=== PATIENT | male | born 1955 | race Two or more races ===

== ENCOUNTER 2023-07-26 15:40 | Inpatient (IN) | payer OTHER, MEDICARE, SELFPAY ==
[2023-07-26] VITALS (17 sets, daily range): BP systolic 122–182; BP diastolic 65–85; BMI 32.0
--- NOTE | 2023-07-26 11:13 | W.PN.CARDCBS ---
Today's Communication / Plan
-
LHC
echo in AM
cardiac rehab consult
Impression / Plan
-
This is the H&P summary.
Full H&P scanned into chart.
PCP: Thomas Quiroz MD
CDY: Dr. Christopher Jackson, DO
68 y/o, PMH sig for HTN, HLD, DM, Hepatitis C, FH CAD- brother with CAD/PCI.
Presented to [facility] ER yesterday with new onset exertional chest pain/discomfort, with associated nausea. He took 3 SL NTG tablets that belonged to his brother, and did get relief. He was given aspirin in the ER. Intial EKG NSR w/RBBB, LAFB. HS
Troponin trended with peak 123. Transferred today for C.
IMPRESSION:
NSTEMI
New RBBB, LAFB
HTN
HLD
DM
Hepatitis C
PLAN:
NSTEMI- LHC today
plan pending cath results
aspirin loaded in ER and 81mg given this morning
new start metoprolol XL 25mg
echo in AM
cardiac rehab
followup with Dr. Jackson at d/c
HTN- BP up to 180s on arrival
new start metoprolol xl 25/d
continue lisinopril 20mg/d
monitor trends
HLD- check lipid profile
increase atorvastatin to 80mg/daily
DM- check HgbA1C
continue glipizide, ISS coverage
Hepatitis C- diagnosed about 7 years ago
stable, and monitored per PCP
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
Subjective
Date of Service: July 26, 2023
Physical Exam
Physical Exam
AAOx3, MAEE 5/5
RRR S1 S2 no murmurs
CTA bilat, non labored
soft abd, + bs
bilat extremities w/palpable distal pulses, no edema
[2023-07-26 12:40] LABS: Glucose - Point of Care 144 mg/dl (70-99)
[2023-07-26] MEDS: NSS 262 ML IV (13:04)
[2023-07-26] MEDS: NSS 1000 IV (15:19)
--- NOTE | 2023-07-26 15:36 | PTCARENOTE ---
Rec'd Pt from prestressed concrete laborer, awake alert, speaks Vietnamese, son at bedside and translating for Pt. Pt denies pain. R radial R band in place, R femoral dsg D+I>
[2023-07-26 15:40] LABS: Glucose - Point of Care 142 mg/dl (70-99)
[2023-07-26] MEDS: NOVOLOG FLEXPEN-MODERATE RESISTANCE SC (15:57)
--- NOTE | 2023-07-26 15:57 | ITS.CL.CATH ---
Account Executive Trainee - Catheterization
Cardiac Catheterization
Procedure Report:
CARDIAC CATHETERIZATION REPORT
Date of Procedure: 07/26/2023
Referring: Christopher Jackson D.O.
INDICATION: Transfer from [facility] for non-ST elevation myocardial infarction.
PROCEDURE:
1. Left heart catheterization.
2. Coronary angiography.
ACCESS:
6 Portuguese right radial artery.
6 Portuguese right common femoral artery using modified Seldinger technique with a micropuncture kit under ultrasound guidance.
CATHETERS:
1. 5 Portuguese JR4.
2. 5 Portuguese JL 3.5.
HEMODYNAMIC DATA
Weight (kg): 87.1
AO (s/d/x, mmHg): 120/66/87
LV (s/x mmHg): 125/22
LEFT VENTRICULOGRAPHY: Not performed.
CORONARY ANGIOGRAPHY
Dominance: Left.
Left Main: Large size, trifurcating vessel. There is no coronary artery disease.
LAD: Normal size vessel giving rise to 2 significant diagonals. There is an 80% proximal/mid vessel lesion originating near the origin of the first diagonal, followed by a 70% lesion in the mid vessel, proximal to the second diagonal.
Ramus: Small to medium size vessel. There is no coronary artery disease.
Circumflex: Large size, dominant vessel giving rise to 2 obtuse marginals followed by left posterolateral branch then terminating as an L PDA. There is a 90% lesion in the origin of the large second marginal. There is a 90% lesion in the distal
aspect of the small LPDA.
RCA: Small size, nondominant vessel.
INTERVENTION(S)
None.
Closure Device: Vascular band for the right radial artery, 6 went Angio-Seal for the right common femoral artery.
Radiation (mGy): 516.98
DAP (cm2.Gy): 48.1910
Fluoroscopy time (minutes): 5.6
Sedation time (minutes): 58
CONCLUSIONS
1. Non-ST elevation myocardial infarction in a left dominant system with an 80% proximal/mid LAD lesion originating near the origin of the first diagonal followed by a 70% lesion in the mid LAD proximal to the second diagonal, and 90% lesion in the
origin of the large second obtuse marginal and a 90% lesion in the distal aspect of the small LPDA.
2. Moderately elevated filling pressures (LVEDP = 22 mmHg at 87.1 kg).
3. 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
RECOMMENDATIONS:
1. Expectant management after cardiac catheterization via right radial and right femoral approach.
2. Limited weight bearing on the right wrist for one week.
3. Consultation with CT surgery regarding optimal revascularization strategy.
4. Secondary prevention with high-dose, high potency statin.
5. Risk factor control.
6. Echocardiogram ordered and pending.
Copy to: Christopher Jackson D.O.
Christopher Mark DO, FACC, FACP
--- NOTE | 2023-07-26 16:16 | CONSULT.CT ---
Consultation
-
Date/Time Consultation Requested: 07/26/2023
Date/Time Consultation Performed: 07/26/2023
Requesting Provider: Dr. Christopher Mark
Performing Provider: Nalini pinzon
Reason for Consultation: Evaluation for surgical revascularization
Patient History
Physicians
Family Physician: Thomas Quiroz
Outpatient Hardware Sales Assistant: Dr. Christopher Jackson
Inpatient Hardware Sales Assistant: Dr. Ronald Mark
History of Present Illness
This is a 68-year-old gentleman with past medical history of hypertension, hyperlipidemia, type 2 diabetes and BPH presented to [facility] with chest pain. He is Persian speaking and plate maker zinc services were used. He describes chest pain
as 'pressure' he was lifting boxes and went up and down the stairs when he developed substernal chest pressure. He denied any shortness of breath. He took 3 sublingual nitro tablets which improved his symptoms. He is not prescribed sublingual
nitro but his brother takes them who had had a PCI in the past. He admits to seeing a sap bw bi developer approximately 1 year ago.
He ruled in for NSTEMI with serial enzymes studies.
He was transferred to [facility] and underwent cardiac catheterization today. Cardiac cath showed critical disease of LAD and OM.
All studies to be reviewed by attending cardiothoracic surgeon and patient to be scheduled for CABG later this week.
Past Medical History
Past Medical History: Angina, BPH, CAD, GERD, HTN, Hypercholesterolemia, NIDDM, [place] and Other
History of hepatitis C not treated, hypertension, kidney stones, hyperlipidemia,
Past Surgical History
Past Surgical History: Cholecystectomy
Cholecystectomy, cataract surgery, lipoma
Dental History
No dental issues presently has dentures
Family History
Mother: at Age
Father: at Age
Family Medical History: CAD and Hypertension
Social History
Alcohol: None
Drug: None
Tobacco: Former Smoker (Former smoker quit 20 years ago)
Personal:
Living: With Spouse
Employment: Retired
Allergies
Allergy/AdvReac Type Severity Reaction Status Date / Time
No Known Allergies Allergy Verified 07/26/23 11:53
Home Medications
Medication Instructions Recorded Confirmed Type
atorvastatin 10 mg tablet 10 mg PO DAILY 07/26/23 07/26/23 History
cyclobenzaprine 5 mg tablet 5 mg PO BID PRN spasam 07/26/23 07/26/23 History
glipizide 10 mg tablet, extended 10 mg PO DAILY 07/26/23 07/26/23 History
release 24 hr (Glucotrol XL)
ibuprofen 200 mg tablet (Advil) 600 mg PO Q6H PRN pain 07/26/23 07/26/23 History
latanoprost 0.005 % eye drops 1 drp ophthalmic (eye) DAILY 07/26/23 07/26/23 History
(Xalatan)
lisinopril 20 mg tablet (Zestril) 20 mg PO DAILY 07/26/23 07/26/23 History
meclizine 25 mg tablet 25 mg PO TID PRN dizziness 07/26/23 07/26/23 History
naproxen 500 mg tablet (Naprosyn) 500 mg PO BID PRN pain 07/26/23 07/26/23 History
tamsulosin 0.4 mg capsule (Flomax) 0.4 mg PO HS 07/26/23 07/26/23 History
Review of Systems
-
Unable to obtain full review of systems at this time due to: Language Barrier
History Source: Family
General: Reports No Symptoms
HEENT: Reports No Symptoms
Respiratory: Reports No Symptoms
Cardiac: Reports Chest Pain, CAD and Nausea
Abdomen/GI: Reports No Symptoms
: Reports Nocturia and Other (BPH)
Musculoskeletal: Reports No Symptoms
Skin: Reports No Symptoms
Neurological: Reports No Symptoms
Vascular: Reports No Symptoms
Physical Exam
Vital Signs
Temp 98.6 F 07/26/23 11:30
Pulse 53 07/26/23 15:45
Resp Rate 16 07/26/23 13:46
Blood pressure 144/69 07/26/23 15:45
Blood pressure extremity used: Right upper arm 07/26/23 11:30
Position: Lying 07/26/23 11:30
MAP (cuff-Chante Monitor) 89 07/26/23 15:45
SaO2 95 07/26/23 13:46
Oxygen Mode of Delivery Room air 07/26/23 11:30
Can the patient verbally communicate their pain? Yes 07/26/23 11:30
Actual Weight 192 lb 7.417 oz 07/26/23 11:14
Body Mass Index (BMI) 32.0 07/26/23 11:14
Exam
General: Well Developed, Well Nourished and No Apparent Distress
HEENT: Normocephalic, Anicteric and Atraumatic
Neck: Trachea Midline
Respiratory: Clear
Cardiac: Regular Rhythm
GI: Soft, Non Tender, Non Distended, Normal Bowel Sounds and Other (Obese)
Rectal: Deferred by Provider
Skin: Warm and Dry
Neuro: Awake, Alert, Oriented and AO x 3
Extremities: Pulses (Popliteal pulses +2 bilaterally dorsalis pedis pulses +2 bilaterally, posterior tibial pulses +1 bilaterally feet cool dry no visible ulcerations)
Lymph: No Lymphadenopathy
Psych: Calm
Assessment / Plan
-
Assessment: NSTEMI
Two-vessel coronary artery disease status post cath via right radial artery
History of hepatitis C
Hypertension
Hyperlipidemia
Type 2 diabetes
New right bundle branch block,LAFB
Kidney stones
BPH
Elevation of left hemidiaphragm
Family history of CAD
Plan: All studies to be reviewed by attending cardiothoracic surgeon
Preoperative studies ordered
CABG later this week
--- NOTE | 2023-07-26 16:38 | CM ---
"Chart reviewed. Patient is non Turkish speaking, spoke with his son Romaine. Patient is independent of ADLS, lives with his in a apartment [address]nd floor, [address] 0 [address]ME. Patient is current with a VN, but unsure of who and how often. Patient's son "Pepe"will find out who the VN company is and how often. Plan is for the patient to return home. CM to follow"
[2023-07-26 17:59] LABS: Total CK 138 U/L (55-170)
[2023-07-26 18:20] LABS: CKMB 3.2 ng/ml (0.0-2.4)
[2023-07-26] MEDS: LIPITOR 80 MG PO (18:29)
[2023-07-26 21:40] LABS: Hematocrit 42.1 % (39.0-52.0); Hemoglobin 14.7 g/dL (13.0-18.0); Mean Corp Hgb Conc. 34.9 g/dL (33.0-37.0); Mean Corpuscular Hgb 30.1 pg (27.0-31.0); Mean Corpuscular Volume 86.1 fL (80.0-94.0); Mean Platelet Volume 10.5 fL (7.4-10.4); Platelet Count 131 10^3/uL (130-400); Red Blood Cell Count 4.89 10^6/uL (4.70-6.10); Red Cell Dist. Width 13.2 % (11.5-14.5); White Blood Cell Count 5.3 10^3/uL (4.8-10.8)
[2023-07-26 21:51] LABS: APTT 27.5 Sec (23.4-35.0)
[2023-07-26 21:56] LABS: Total CK 133 U/L (55-170)
[2023-07-26] MEDS: FLOMAX 0.400000000000000022 MG PO (22:06)
[2023-07-26] MEDS: HEPARIN 25000 UNITS/250 ML IV (22:06)
[2023-07-26 22:07] LABS: Glucose - Point of Care 190 mg/dl (70-99)
[2023-07-26 22:14] LABS: CKMB 2.3 ng/ml (0.0-2.4)
--- NOTE | 2023-07-26 22:35 | PTCARENOTE ---
Received pt at handoff. AOx3. Assessment noted as documented. Tele- SB w/ BBBC. HR 50-60s. R radial and R femoral c/d/i. Pt OOB ambulating around room; steady gait. Family at bedside translating. Currently in bed; call deena w/in reach.
[2023-07-27 04:54] VITALS: BP 135/75
[2023-07-27 05:33] LABS: Hematocrit 38.3 % (39.0-52.0); Hemoglobin 13.5 g/dL (13.0-18.0); Mean Corp Hgb Conc. 35.2 g/dL (33.0-37.0); Mean Corpuscular Volume 85.1 fL (80.0-94.0); Mean Platelet Volume 10.4 fL (7.4-10.4); Platelet Count 131 10^3/uL (130-400); Red Cell Dist. Width 13.1 % (11.5-14.5); White Blood Cell Count 5.5 10^3/uL (4.8-10.8)
[2023-07-27 05:45] LABS: APTT 42.7 Sec (23.4-35.0)
[2023-07-27 06:09] LABS: Total CK 102 U/L (55-170)
[2023-07-27 06:12] LABS: ALT (SGPT) 18 U/L (0-50); AST (SGOT) 27 U/L (17-59); Alkaline Phosphatase 51 U/L (38-126); Blood Urea Nitrogen 14 mg/dl (9-20); Carbon Dioxide 25 mmol/L (22-30); Chloride 102 mmol/L (98-107); Estimated Creatinine Clearance 78 ml/min; Glucose 212 mg/dl (70-99); HDL Cholesterol 33 mg/dl; LDL Cholesterol, Calculated 62 mg/dl; Sodium 136 mmol/L (135-145); Total Cholesterol 115 mg/dl (50-199); Total Protein 6.8 g/dl (6.3-8.2); Triglyceride 104 mg/dl (10-149); Very Low Density Lipoprotein 20 mg/dl (0-30); eGFR > 60.00
[2023-07-27 06:30] LABS: CKMB 1.2 ng/ml (0.0-2.4)
--- NOTE | 2023-07-27 07:20 | W.PN.CD ---
Today's Communication / Plan
-
Continue med Rx
Awaiting CABG
Impression / Plan
-
This is the H&P summary.
Full H&P scanned into chart.
PCP: Thomas Quiroz MD
CDY: Dr. Christopher Jackson, DO
68 y/o, PMH sig for HTN, HLD, DM, Hepatitis C, FH CAD- brother with CAD/PCI.
Presented to [facility] ER yesterday with new onset exertional chest pain/discomfort, with associated nausea. He took 3 SL NTG tablets that belonged to his brother, and did get relief. He was given aspirin in the ER. Intial EKG NSR w/RBBB, LAFB. HS
Troponin trended with peak 123. No CP yesterday.
IMPRESSION:
NSTEMI
New RBBB, LAFB
HTN
HLD
DM
Hepatitis C
PLAN:
NSTEMI-
Trop not yet peaked. 1.9 this AM
multivessel CAD at cath 3-18. CABG recommened by Dr Mark. Looks to me like only graftable targets are LAD and large OM3 (OM1, OM2 small). Diseased diag and LPDA too small
metoprolol XL 25mg
echo in AM
followup with Dr. Jacksno at d/c
HTN- BP up to 180s on arrival
new start metoprolol xl 25/d
continue lisinopril 20mg/d
BP high last night 135/75 this AM. Follow
HLD- check lipid profile
increase atorvastatin to 80mg/daily
HDL 32, LDL 63
DM-
HgbA1C this AM pending
continue glipizide, ISS coverage
Hepatitis C- diagnosed about 7 years ago
stable, and monitored per PCP
Dispo: Stable awaiting CABG
Physical Exam
Vital Signs/Labs
Vital Signs
Temp Pulse Resp BP Pulse Ox
98.7 F 81 16 135/75 94
07/27/23 04:54 07/27/23 05:30 07/26/23 23:11 07/27/23 04:54 07/27/23 04:54
07/26/23 07/27/23 07/28/23
06:59 06:59 06:59
Actual Weight 192 lb 7.417 oz
07/27/23 05:10
07/27/23 05:10
APTT 42.7 Sec (23.4-35.0) H 07/27/23 05:10
Triglycerides 104 mg/dl (10-149) 07/27/23 05:10
LDL Cholesterol, Calc 62 mg/dl 07/27/23 05:10
VLDL Cholesterol, Calc 20 mg/dl (0-30) 07/27/23 05:10
HDL Cholesterol 33 mg/dl 07/27/23 05:10
LAB Results
07/26/23 07/26/23 07/27/23
17:14 21:19 05:10
Troponin I 1.740 H* 1.660 H* 1.980 H*
Physical Exam
Constitutional: No acute distress and Comfortable
Cardiovascular: Rhythm & rate is regular, S1S2 is normal and Murmur/rub/gallop absent
Respiratory: Respiratory effort normal and Lungs clear to auscul.
GI: Non tender
Neuro/Psych: AO x 3 and Motor deficits absent
Data Reviewed
-
Date of Service: July 27, 2023
[2023-07-27 07:36] VITALS: BP 123/71
[2023-07-27 07:40] LABS: Glucose - Point of Care 162 mg/dl (70-99)
[2023-07-27] MEDS: LOW STRENGTH ASPIRIN 81 MG PO (08:33)
[2023-07-27] MEDS: GLUCOTROL XL (EXTENDED RELEASE) 10 MG PO (08:33)
[2023-07-27] MEDS: TOPROL XL 25 MG PO (08:34)
[2023-07-27] MEDS: NOVOLOG FLEXPEN-MODERATE RESISTANCE 1 UNITS SC (08:34)
[2023-07-27] MEDS: XALATAN OPHTHALMIC SOLUTION 1 DROP OPHTH (08:35)
--- NOTE | 2023-07-27 09:39 | PTCARENOTE ---
Pt given education on acute coronary syndrome/heart attack in Yakut printed from [employer]. Pt's primary language is Yakut, he speaks very little Trinidadian. Language line is at bedside.
--- NOTE | 2023-07-27 10:46 | PN.DE.MGMTRT ---
Insulin Management
- -
07/27/2023 Diabetes Management Consult
Patient transferred from [facility] 07/25 with CP. S/P cardiac cath. Patient is Divehi speaking, he preferred to call his son for translation. PMH HTN, HLD, type 2 diabetes for 10 years, hepatitis C. Prior to admission patient was taking
glipizide XL 10 mg daily. A1C is 8%, cr .9, eGFR >60. Patient does have a working glucose monitor but states he ran out of strips ~ 20 days ago. Son will provide name of glucose monitor so additional strips can be prescribed for discharge.
He is to have stent placed. Will discuss with CM cost of Jardiance or Farxiga to add to manage diabetes.
Diabetes History
- -
Type of Diabetes: 2
Pre-Admission Diabetes Regimen
07/27/23
05:10
Creatinine 0.9
Lab Results
Hemoglobin A1c 8.0 % (4.0-5.6) H 07/27/23 05:10
Insulin Pump Settings
IP Diabetes Regimen
07/26/23 07/26/23 07/26/23
12:26 15:39 22:04
Glucose
POC Glucose 144 H 142 H 190 H
07/27/23 07/27/23
05:10 07:38
Glucose 212 H
POC Glucose 162 H
Meal type: Breakfast
Meal type: Dinner
Amount consumed: 100%
Amount consumed: 100%
Patient Education
[2023-07-27] MEDS: VENTOLIN NEBULES 2.5 MG INH (11:20)
--- NOTE | 2023-07-27 11:47 | CM ---
Pricing on Farxiga through the patient's [facility], ID [id number] is $0 copay.
Pricing on Jardiance is $0 copay.
--- NOTE | 2023-07-27 13:28 | CM ---
Chart reviewed. Patient's at bedside, she does not speak Malian and called her son to translate. Patient is independent of ADLS, lives in a 2nd floor apartment, [address]. Patient son working on getting the information on the VN agency
they use. Patient unsure if they want a PCI vs CABG. CM to follow
[2023-07-27 13:41] LABS: APTT 57.1 Sec (23.4-35.0)
[2023-07-27 13:41] LABS: Glucose - Point of Care 133 mg/dl (70-99)
[2023-07-27] MEDS: NOVOLOG FLEXPEN-MODERATE RESISTANCE SC ×2 (13:54→17:34)
[2023-07-27] MEDS: FARXIGA 10 MG PO (13:54)
[2023-07-27 15:39] VITALS: BP 111/56
--- NOTE | 2023-07-27 16:39 | W.PN.UPDATE ---
Update Note
Progress Note Update
CARDIAC SURGERY ATTENDING:
It was my pleasure to speak with Mr. Peralta and his family at bedside with the aid of an Korean gore maker. We reviewed his coronary pathology, the proposed operative interventions, associated periprocedural risks, the expected in-hospital
postoperative course, and expected outpatient recovery. I spent great deal time discussing that CABG represented a survival advantage over PCI/stenting given his coronary disease profile and medical comorbidities.
He was quite trepidations regarding potential surgical intervention. His brother had PCI/stenting 14 years prior and has been doing well, and he stated that he knew numerous people who had complications following open heart surgery. Despite
stating that he understood the recommendation, the patient was not amenable to surgery at this time. He appears to be leaning more towards PCI/stenting, but has not yet made a final decision, pending discussions this evening with his children. I
am happy to offer him CABG with SANTOS to LAD and greater saphenous vein to OM2.
If the patient chooses to proceed with PCI/stenting, speaking with my interventional cardiology colleagues, he will require a Brilinta 180 mg p.o. loading dose this evening.
Thank you for the opportunity to participate in the care of this patient.
Please call with any questions or concerns.
Alessandro Thompson MD
[phone]
[2023-07-27] MEDS: LIPITOR 80 MG PO (17:23)
[2023-07-27] MEDS: HEPARIN 25000 UNITS/250 ML IV (17:25)
[2023-07-27 17:31] LABS: Glucose - Point of Care 126 mg/dl (70-99)
--- NOTE | 2023-07-27 18:30 | W.PN.UPDATE ---
Update Note
Progress Note Update
Patient has decided to proceed with stent option. Drs. Walters and Jay notified. Confirmed Brilinta 180mg x 1 for 1999 ton and 90mg x 1 on 07/27 @ 0800.
[2023-07-27 19:13] VITALS: BP 142/95
[2023-07-27] MEDS: BRILINTA 180 MG PO (20:40)
[2023-07-27 20:45] LABS: APTT 72.2 Sec (23.4-35.0)
[2023-07-27 21:44] LABS: Glucose - Point of Care 119 mg/dl (70-99)
[2023-07-27 22:27] VITALS: BP 144/88
[2023-07-27] MEDS: FLOMAX 0.400000000000000022 MG PO (22:27)
--- NOTE | 2023-07-27 23:16 | PTCARENOTE ---
Received pt at handoff. AOX3. Assessment noted as documented. VSS. Heparin gtt infusing at 1500units/hr. R radial DIANA. R femoral c/d/i. Pt aware of NPO status for cath tomorrow. Currently in bed; call deena w/in reach.
[2023-07-28] VITALS (21 sets, daily range): BP systolic 125–156; BP diastolic 82–99; BMI 30.6
[2023-07-28 04:06] LABS: Mean Corp Hgb Conc. 35.9 g/dL (33.0-37.0); Mean Corpuscular Hgb 30.5 pg (27.0-31.0); Mean Platelet Volume 10.6 fL (7.4-10.4); Platelet Count 131 10^3/uL (130-400); Red Blood Cell Count 4.59 10^6/uL (4.70-6.10); Red Cell Dist. Width 13.1 % (11.5-14.5); White Blood Cell Count 4.4 10^3/uL (4.8-10.8)
[2023-07-28 04:15] LABS: APTT 43.9 Sec (23.4-35.0)
--- NOTE | 2023-07-28 07:16 | PN.DE.MGMTRT ---
Insulin Management
- -
07/28/2023 Diabetes Management Follow up
Patient transferred from [facility] 07/25 with CP. S/P cardiac cath. Patient is awake, alert and oriented, Tamazight speaking, he preferred to call his son for translation. PMH HTN, HLD, type 2 diabetes for 10 years, hepatitis C. Prior to
admission patient was taking glipizide XL 10 mg daily. A1C is 8%, cr .9, eGFR >60. Patient does have a working glucose monitor but states he ran out of strips ~ 20 days ago.
Discussed new medication, Farxiga, with patient. 10 mg Farxiga started yesterday, glucose improved from 144 to 190 to 119 to 133. Will continue Farxiga with glipizide. Patient to have stent rather than CABG.
Diabetes History
- -
Type of Diabetes: 2
Pre-Admission Diabetes Regimen
Lab Results
Hemoglobin A1c 8.0 % (4.0-5.6) H 07/27/23 05:10
Insulin Pump Settings
IP Diabetes Regimen
07/27/23 07/27/23 07/27/23
07:38 13:39 17:30
POC Glucose 162 H 133 H 126 H
07/27/23
21:42
POC Glucose 119 H
Meal type: Dinner
Meal type: Breakfast
Amount consumed: 100%
Amount consumed: 100%
Patient Education
[2023-07-28] MEDS: LOW STRENGTH ASPIRIN 81 MG PO (08:42)
[2023-07-28] MEDS: TOPROL XL 25 MG PO (08:42)
[2023-07-28] MEDS: NOVOLOG FLEXPEN-MODERATE RESISTANCE 1 UNITS SC (08:46)
[2023-07-28] MEDS: XALATAN OPHTHALMIC SOLUTION 1 DROP OPHTH (08:46)
[2023-07-28 08:47] LABS: Glucose - Point of Care 150 mg/dl (70-99)
[2023-07-28] MEDS: BRILINTA 90 MG PO ×2 (08:49→21:01)
--- NOTE | 2023-07-28 09:39 | PTCARENOTE ---
Assumed care of pt from night RN. Pt received awake and alert, Ox3. Speaks only Albanian, this nurse is using Google translate to communicate with pt without issues. VSS, CM shows NSR with BBB, POX 96% on RA. Right radial and femoral sites remain
CDI. Pt remains NPO for CCL, Brillinta 90 mg given as per JUL. Glipizide and Farxiga held till after procedure. Pt denies any pain or discomfort at this time.
--- NOTE | 2023-07-28 11:18 | PTCARENOTE ---
Report given to CCL nurse, pt taken to CCL for stenting.
--- NOTE | 2023-07-28 11:22 | W.PN.CD ---
Today's Communication / Plan
-
Patient declined CABG.
Plan for PCI today.
Loaded with ticagrelor overnight.
Impression / Plan
-
Impression/Plan: 68 y/o Thai speaking male with PMH sig for HTN, HLD, DM, Hepatitis C, FH CAD (brother with CAD/PCI) transferred from [facility] with NSTEMI. Cath showed LAD/OM disease. Patient declined CABG after two separate conversations
facilitated by the patient's son (who translates).
#NSTEMI
-Troponin peaked at 1.980.
-Multivessel CAD including LAD disease on cath. Patient initially referred for CABG. Patient declined CABG, prefers PCI in spite of at least two conversations documenting fdc benefit to CABG in DM.
-TTE shows normal LV function.
-Continue high dose, high potency statin.
-Loaded with ticagrelor. Plan for PCI today.
#HTN
-SBP up to 180s on arrival.
-Controlled on current regimen.
-Continue metoprolol.
-Restart lisinopril at reduced dose (10 mg) daily.
#HLD
-Chronic, stable.
-Total cholesterol = 115, LDL = 62, HDL = 33, Triglycerides = 104.
-Continue atorvastatin 40 mg daily.
-Goal LDL < 55.
#NIDDM
-HgbA1C = 8.0%.
-Continue glipizide. Dapagliflozin added.
#Hepatitis C
-Diagnosed about 7 years ago.
-Monitored per PCP.
Subjective/Interval History:
Patient has declined CABG after two (really three) separate conversations.
He is chest pain free.
Loaded with ticagrelor in anticipation of PCI.
PCP: Thomas Quiroz MD
CDY: Dr. Christopher Jackson,
DATA:
TTE, 07/27/2023:
CONCLUSIONS
�Normal biventricular size and systolic function without regional wall motion
�abnormality.
�The anterolateral wall was not well visualized.
�No significant valvular disease. .
�No prior study available for comparison.
Cardiac Catheterization, 07/26/2023:
CONCLUSIONS
1.� Non-ST elevation myocardial infarction in a left dominant system with an 80% proximal/mid LAD lesion originating near the origin of the first diagonal followed by a 70% lesion in the mid LAD proximal to the second diagonal, and 90% lesion in the
origin of the large second obtuse marginal and a 90% lesion in the distal aspect of the small LPDA.
2.� Moderately elevated filling pressures (LVEDP = 22 mmHg at 87.1 kg).
3.� Severe right subclavian tortuosity versus arteria lusoria.
Physical Exam
Vital Signs/Labs
Vital Signs
Temp Pulse Resp BP Pulse Ox
36.9 C 87 20 130/83 96
07/28/23 08:09 07/28/23 08:30 07/28/23 08:09 07/28/23 08:10 07/28/23 09:22
07/26/23 07/27/23 07/28/23
11:59 11:59 11:59
Actual Weight 87.3 kg 83.3 kg
07/28/23 03:32
07/27/23 05:10
APTT 43.9 Sec (23.4-35.0) H 07/28/23 03:32
Triglycerides 104 mg/dl (10-149) 07/27/23 05:10
LDL Cholesterol, Calc 62 mg/dl 07/27/23 05:10
VLDL Cholesterol, Calc 20 mg/dl (0-30) 07/27/23 05:10
HDL Cholesterol 33 mg/dl 07/27/23 05:10
LAB Results
07/26/23 07/26/23 07/27/23
17:14 21:19 05:10
Troponin I 1.740 H* 1.660 H* 1.980 H*
07/27/23
16:59
Troponin I 1.210 H*
Physical Exam
Constitutional: No acute distress and Comfortable
EENT: Anicteric and Moist mucous membranes
Cardiovascular: Rhythm & rate is regular, Pedal edema is absent, JVD pressure is normal, S1S2 is normal and Murmur/rub/gallop absent
Respiratory: Respiratory effort normal, Lungs clear to auscul., Wheeze Absent, Crackles Absent and Rhonchi Absent
GI: Soft, Distention absent, Flat, Non tender and Normal bowel sounds
Other: Cath Site (Right common femoral access site is mildly ecchymotic.)
Data Reviewed
-
Date of Service: July 28, 2023
Medical Decision Making: Reviewed Test Results, Independent Historian Assessment and Test Interpretation
EKG: Tracing Personally Visualized and interpreted and Report Reviewed by me
Echo: Report Reviewed by me
X-Ray/CT/US/MRI/NUC/PET: Image Personally Visualized and interpreted and Report Reviewed by me
Medical Tests (PFT, Pathology etc): Image Personally Visualized and interpreted, Report Reviewed by me, Discussed with Physician, Discussed with Patient and Discussed with Family
Labs: Labs Reviewed by me
Old Records: Reviewed
--- NOTE | 2023-07-28 11:46 | CM ---
Pricing on Brilinta is $ 0 copay. I did call the patient's [facility] and they have Brilinta 90 mg in stock.
--- NOTE | 2023-07-28 12:03 | CM ---
Chart reviewed. 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 Patient lives with his in a 2nd floor apartment, [address], 0 [address]. Patient's son confirmed his father does not receive VN services, he has a home health aide and is interested in receiving VN.
[facility] sent to [facility]. DANIEL to follow
[2023-07-28 12:26] LABS: ACT-LR - POC 361 Seconds (116-155)
[2023-07-28 13:02] LABS: ACT-LR - POC > 397 Seconds (116-155)
--- NOTE | 2023-07-28 13:05 | PTCARENOTE ---
Received pt from CCL post stent to Mid LAD and OM1. Pt arrives awake and alert, Ox3. VSS, CM shows NSR, POX 97% on RA. Sheath noted to left femoral attached to transducer as ordered. First ACT 258. @nd ACT 197. Pt voided 200 ml's clear yellow
urine. He denies anypain or discomfort, will monitor closely.
[2023-07-28] MEDS: NOVOLOG FLEXPEN-MODERATE RESISTANCE SC ×2 (13:10→17:21)
--- NOTE | 2023-07-28 13:14 | ITS.CL.ANGIO ---
Interlacer - Angioplasty
Angioplasty
Procedure Report:
CARDIAC CATHETERIZATION REPORT
Date of Procedure: 07/28/2023
Referring: Christopher Jackson D.O.
INDICATION: Non-ST elevation myocardial infarction, declined CABG.
PROCEDURE:
1. Left coronary tree angiography.
2. Successful PCI of ostial OM 2.
3. Successful PCI of the mid LAD.
4. Intravascular ultrasound of the left anterior descending artery.
ACCESS:
6 Ukrainian left common femoral artery using a modified Seldinger technique with a micropuncture kit under ultrasound guidance.
CATHETERS:
1. 6 Ukrainian EBU 3.5 guiding catheter.
HEMODYNAMIC DATA
Weight (kg): 83.0
AO (s/d/x, mmHg): 135/85/105
LV (s/x mmHg): Not obtained.
LEFT VENTRICULOGRAPHY: Not performed.
CORONARY ANGIOGRAPHY
Dominance: Left.
Left Main: Large size, trifurcating vessel. There is no coronary artery disease.
LAD: Normal size vessel giving rise to 2 significant diagonals. There is an 80% proximal/mid vessel lesion originating just after the origin of the first diagonal. This is followed by a 70% lesion in the mid vessel proximal to the second
diagonal. The plaque in question spans the origin of D2.
Ramus: Small to medium size vessel. There is no coronary artery disease.
Circumflex: Large size, dominant vessel giving rise to 2 obtuse marginals followed by a left posterolateral branch then terminating as the LPDA. There is a 90% lesion in the origin of the second marginal. There is a 90% lesion in the distal
aspect of the small LPDA, not amenable to intervention.
RCA: Not injected. Known to be a small size, nondominant vessel.
INTERVENTION(S)
1. Successful PCI of the 90% proximal OM2 lesion (Xience Skypoint 2.25 x 12 SADE, postdilated with a 2.25 NC balloon) with reduction in stenosis to 0%, maintaining SHERLY-3 flow.
2. Successful PCI of the tandem 80% and 70% LAD lesions (Xience Skypoint 2.5 x 33 SADE, postdilated with a 2.5 NC balloon throughout and a 2.75 NC balloon in the proximal margin) with reduction in stenosis to 0%, maintaining SHERLY-3 flow.
3. Successful intravascular ultrasound of the left anterior descending artery.
Narrative:
The decision was made to proceed with percutaneous coronary intervention. A 6Fr EBU 3.5 guiding catheter was advanced to the aortic root and seated in the left main coronary artery. Additional heparin was given and a Power Turn Flex wire was
advanced into the distal OM 2. The 90% proximal OM2 lesion was predilated with a 2.0 x 12 semi-compliant balloon to 12 charlene. The semi-compliant balloon was removed and a Xience Skypoint 2.25 x 12 drug-eluting stent was advanced. The stent was
deployed at 9 atmospheres. The stent balloon was removed. A 2.25 x 8 noncompliant balloon was advanced into the stent and the stent was postdilated to 12 atmospheres. Angiography was performed in orthogonal views, confirming good stent expansion and
an excellent angiographic result.
We then turned our attention to the LAD. The power Turn Flex wire was withdrawn from the circumflex and advanced into the distal LAD. A BMW wire was advanced for protection of the diagonal, but this would not into the wire without significant
kinking. Ultimately, because the lesion was beyond the origin of the first diagonal, the decision was made to abandon this protection. The tandem 80% and 70% proximal/mid LAD lesions were predilated with a 2.0 x 12 semi-compliant balloon to 12 charlene.
The semi-compliant balloon was removed and a sign Skypoint 2.5 x 33 drug-eluting stent was advanced. The stent was deployed at 12 atmospheres. The stent balloon was removed. A 2.5 x 20 noncompliant balloon was advanced into the stent and the stent
was postdilated to 14 atmospheres.
The decision was made to perform intracoronary imaging. An IVUS catheter was advanced through the guiding catheter and into the ostium of the artery. Ring down was performed once the imaging crystal was no longer inside of the guiding catheter. The
IVUS catheter was advanced into the mid LAD, beyond the stented segment. Intravascular ultrasound was performed in a retrograde fashion using a slow pullback. Intracoronary imaging demonstrated good stent apposition and expansion. The proximal
stent was adequately expanded and apposed, though the artery immediately proximal to that was slightly larger. The IVUS catheter was removed and the decision was made to post dilate the proximal LAD stent. A 2.75 x 12 NC balloon was advanced and
the proximal stent was postdilated to 14 charlene. The noncompliant balloon was removed.
Angiography was performed in orthogonal views, confirming good stent expansion and an excellent angiographic result. The coronary wire was withdrawn and the guide was disengaged from the artery. The catheter was removed over a standard J-wire.
Closure Device: The sheath was sutured in place. Manual pressure will be applied once ACT is <180 seconds.
Radiation (mGy): 1575.34
DAP (cm2.Gy): 108.95
Fluoroscopy time (minutes): 16.9
Sedation time (minutes): 84
CONCLUSIONS
1. Left dominant circulation with tandem 80% proximal/mid and 70% mid LAD lesions status post successful IVUS guided PCI (Xience Skypoint 2.5 x 33 SADE, postdilated with a 2.5 NC balloon throughout and a 2.75 NC balloon in the proximal margin), a
90% lesion in the origin of the second obtuse marginal status post successful PCI (Xience Skypoint 2.25 x 12 SADE, postdilated with a 2.25 NC balloon) and a 90% lesion in the distal aspect of the small LPDA, not amenable to intervention.
RECOMMENDATIONS:
1. Expectant management after cardiac catheterization via left femoral approach.
2. Limited weight bearing for one week.
3. Dual antiplatelet therapy with aspirin and ticagrelor for at least 12 months, followed by aspirin indefinitely.
4. Secondary prevention with high-dose, high potency statin, diabetes control.
5. Referral to cardiac rehab.
Copy to: Christopher Jackson D.O., [place] PA-C
Christopher Mark DO, [facility], FACP
[2023-07-28 13:31] LABS: ACT-LR - POC 258 Seconds (116-155)
[2023-07-28] MEDS: NSS 1000 IV (14:38)
[2023-07-28 14:39] LABS: ACT-LR - POC 197 Seconds (116-155)
[2023-07-28 15:30] LABS: ACT-LR - POC 176 Seconds (116-155)
[2023-07-28 17:20] LABS: Glucose - Point of Care 111 mg/dl (70-99)
[2023-07-28] MEDS: LIPITOR 80 MG PO (17:39)
[2023-07-28] MEDS: GLUCOTROL XL (EXTENDED RELEASE) 10 MG PO (17:39)
[2023-07-28] MEDS: FARXIGA 10 MG PO (17:40)
--- NOTE | 2023-07-28 20:20 | PTCARENOTE ---
Assumed care of patient at change of shift w/ family at bedside. Patient AAOx3, VSS, and sating 94% RA. Tele monitor shows SR w/ BBBC, HR 70-80s at rest. Patient ambulates in room & hallway w/out difficulty, HR in the 90-110's w/ ambulation. Denies
any pain or discomfort. Left groin dressing C/D/I, and soft upon palpation. Bilateral pedal pulses palpable. Patient and family aware of activity restrictions. Education provided in patients nikolai language (mohawk). Diet education also provided for
patient and family. Call shaffer in reach.
[2023-07-28] MEDS: FLOMAX 0.400000000000000022 MG PO (21:01)
[2023-07-28 21:22] LABS: Glucose - Point of Care 172 mg/dl (70-99)
[2023-07-29 03:44] VITALS: BP 147/85
[2023-07-29 04:32] LABS: Hematocrit 40.4 % (39.0-52.0); Mean Corp Hgb Conc. 34.7 g/dL (33.0-37.0); Mean Corpuscular Volume 86.5 fL (80.0-94.0); Mean Platelet Volume 10.4 fL (7.4-10.4); Platelet Count 156 10^3/uL (130-400); Red Blood Cell Count 4.67 10^6/uL (4.70-6.10); Red Cell Dist. Width 13.2 % (11.5-14.5); White Blood Cell Count 6.6 10^3/uL (4.8-10.8)
[2023-07-29 04:59] LABS: Blood Urea Nitrogen 21 mg/dl (9-20); Calcium 9.5 mg/dl (8.4-10.2); Carbon Dioxide 21 mmol/L (22-30); Chloride 101 mmol/L (98-107); Estimated Creatinine Clearance 68 ml/min; Glucose 127 mg/dl (70-99); Potassium 4.3 mmol/L (3.5-5.1); Sodium 136 mmol/L (135-145); eGFR > 60.00
[2023-07-29 06:52] VITALS: BP 104/71
[2023-07-29 06:55] LABS: Glucose - Point of Care 124 mg/dl (70-99)
[2023-07-29] MEDS: NOVOLOG FLEXPEN-MODERATE RESISTANCE SC ×2 (07:35→12:12)
[2023-07-29] MEDS: LOW STRENGTH ASPIRIN 81 MG PO (07:46)
[2023-07-29] MEDS: FARXIGA 10 MG PO (07:46)
[2023-07-29] MEDS: TOPROL XL 25 MG PO ×2 (07:47→09:21)
[2023-07-29] MEDS: BRILINTA 90 MG PO (07:47)
[2023-07-29] MEDS: GLUCOTROL XL (EXTENDED RELEASE) 10 MG PO (07:50)
[2023-07-29] MEDS: XALATAN OPHTHALMIC SOLUTION 1 DROP OPHTH (07:51)
--- NOTE | 2023-07-29 07:56 | W.PN.CD ---
Today's Communication / Plan
-
Increase metoprolol to 50 mg daily.
Restart lisinopril 5 mg daily.
Stable for outpatient follow up.
Discharge.
Impression / Plan
-
Impression/Plan: 68 y/o Estonian speaking male with PMH sig for HTN, HLD, DM, Hepatitis C, FH CAD (brother with CAD/PCI) transferred from [facility] with NSTEMI. Cath showed LAD/OM disease. Patient declined CABG after two separate conversations
facilitated by the patient's son (who translates).
#NSTEMI
-Troponin peaked at 1.980.
-Multivessel CAD including LAD disease on cath. Patient initially referred for CABG. Patient declined CABG, prefers PCI in spite of at least two conversations documenting intermediate manager benefit to CABG in DM.
-TTE shows normal LV function.
-Continue high dose, high potency statin.
-Successful PCI of the OM2 (Xience Skypoint 2.25 x 12 SADE) and prox/mid LAD (Xience Skypoint 2.5 x 33 SADE) yesterday.
-DAPT with ASA and ticagrelor for a least 12 months, followed by ASA indefinitely.
-Increase metoprolol to 50 mg daily.
-Referral to cardiac rehab.
#HTN
-SBP up to 180s on arrival.
-Controlled on current regimen.
-Continue metoprolol.
-Restart lisinopril at reduced dose (5 mg) daily.
#HLD
-Chronic, stable.
-Total cholesterol = 115, LDL = 62, HDL = 33, Triglycerides = 104.
-Continue atorvastatin 40 mg daily.
-Goal LDL < 55.
#NIDDM
-HgbA1C = 8.0%.
-Continue glipizide. Dapagliflozin added.
#Hepatitis C
-Diagnosed about 7 years ago.
-Monitored per PCP.
#Dispo
-Stable for outpatient follow up ([facility]).
Subjective/Interval History:
Patient has declined CABG after two (really three) separate conversations.
He is chest pain free.
Loaded with ticagrelor in anticipation of PCI.
PCP: Thomas Quiroz MD
CDY: Dr. Christopher Jackson, DO
DATA:
TTE, 07/27/2023:
CONCLUSIONS
�Normal biventricular size and systolic function without regional wall motion
�abnormality.
�The anterolateral wall was not well visualized.
�No significant valvular disease. .
�No prior study available for comparison.
Cardiac Catheterization, 07/26/2023:
CONCLUSIONS
1.� Non-ST elevation myocardial infarction in a left dominant system with an 80% proximal/mid LAD lesion originating near the origin of the first diagonal followed by a 70% lesion in the mid LAD proximal to the second diagonal, and 90% lesion in the
origin of the large second obtuse marginal and a 90% lesion in the distal aspect of the small LPDA.
2.� Moderately elevated filling pressures (LVEDP = 22 mmHg at 87.1 kg).
3.� Severe right subclavian tortuosity versus arteria lusoria.
Physical Exam
Vital Signs/Labs
Vital Signs
Temp Pulse Resp BP Pulse Ox
37.3 C 98 20 104/71 96
07/29/23 06:50 07/29/23 07:47 07/29/23 06:50 07/29/23 07:47 07/29/23 06:50
07/27/23 07/28/23 07/29/23
11:59 11:59 11:59
Actual Weight 83.3 kg
07/29/23 04:02
07/29/23 04:02
APTT Cancelled 07/28/23 10:45
Triglycerides 104 mg/dl (10-149) 07/27/23 05:10
LDL Cholesterol, Calc 62 mg/dl 07/27/23 05:10
VLDL Cholesterol, Calc 20 mg/dl (0-30) 07/27/23 05:10
HDL Cholesterol 33 mg/dl 07/27/23 05:10
LAB Results
07/26/23 07/26/23 07/27/23
17:14 21:19 05:10
Troponin I 1.740 H* 1.660 H* 1.980 H*
07/27/23
16:59
Troponin I 1.210 H*
Physical Exam
Constitutional: No acute distress and Comfortable
EENT: Anicteric and Moist mucous membranes
Cardiovascular: Rhythm & rate is regular, Pedal edema is absent, JVD pressure is normal, S1S2 is normal and Murmur/rub/gallop absent
Respiratory: Respiratory effort normal, Lungs clear to auscul., Wheeze Absent, Crackles Absent and Rhonchi Absent
GI: Soft, Distention absent, Flat, Non tender and Normal bowel sounds
Neuro/Psych: AO x 3
Other: Cath Site (Bilateral femoral access sites are soft. Right sided ecchymoses, stable.)
Data Reviewed
-
Date of Service: July 29, 2023
Medical Decision Making: Reviewed Test Results, Test Interpretation and Review of Case with other Provider
EKG: Tracing Personally Visualized and interpreted and Report Reviewed by me
Echo: Tracing Personally Visualized and interpreted and Report Reviewed by me
X-Ray/CT/US/MRI/NUC/PET: Image Personally Visualized and interpreted and Report Reviewed by me
Medical Tests (PFT, Pathology etc): Image Personally Visualized and interpreted and Report Reviewed by me
Labs: Labs Reviewed by me
Old Records: Reviewed
--- NOTE | 2023-07-29 08:37 | PTCARENOTE ---
Rec'd pt this shift awake and alert in bed. Pt denies CP, denies sob. Rt groin ecchymotic.Dr. Easley aware. Left groin dsg intact, no bleeding, no hematoma. Palpable pulses to bilateral LE. AM meds given. Pt ambulating in room and in hallway. See
worklist for VS/I and O and assessments.
[2023-07-29 09:21] VITALS: BP 124/91
--- NOTE | 2023-07-29 09:41 | PN.DE.MGMTRT ---
Insulin Management
- -
07/29/2023 Diabetes Management Follow up
Patient transferred from [facility] 07/25 with CP. S/P 2nd cardiac cath with stent 07/28/23 @ 13:14. Patient is awake, alert and oriented, Kinyarwanda speaking, he preferred to call his son for translation. PMH HTN, HLD, type 2 diabetes for 10
years, hepatitis C. Prior to admission patient was taking glipizide XL 10 mg daily. A1C is 8%, cr .9, eGFR >60. Patient does have a working glucose monitor but states he ran out of strips ~ 20 days ago.
Discussed new medication, Farxiga, with patient, per CM 0 co-pay. 10 mg Farxiga started 07/26, glucose improved 111 to 172. Will continue Farxiga with glipizide. Will make no change to regimen. RX for test strips and lancets as well as Farxiga
10 mg daily.
Diabetes History
- -
Type of Diabetes: 2
Pre-Admission Diabetes Regimen
07/29/23
04:02
Creatinine 1.0
Lab Results
Hemoglobin A1c 8.0 % (4.0-5.6) H 07/27/23 05:10
Insulin Pump Settings
IP Diabetes Regimen
07/28/23 07/28/23 07/29/23
17:19 21:21 04:02
Glucose 127 H
POC Glucose 111 H 172 H
07/29/23
06:53
Glucose
POC Glucose 124 H
Meal type: Breakfast
Meal type: Dinner
Amount consumed: 100%
Patient Education
[2023-07-29 10:36] VITALS: BP 148/83
[2023-07-29] MEDS: ZESTRIL 5 MG PO (10:36)
[2023-07-29 11:20] VITALS: BP 143/75
--- NOTE | 2023-07-29 11:38 | W.DS.TRANS ---
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
-
Discharge Instructions:
Discharge Diagnosis/Procedures Diagnoses: myocardial infarction, coronary
artery disease, diabetes, hypertension,
dyslipidemia
Procedure: Cardiac catheterization, Angioplasty
with stent to LAD and OM2
Diet Low Cholesterol,Diabetic, Carb Controlled
Activity Other activity
Additional Activity see activity restrictions on attached discharge
sheet
Driving Restrictions then as prior to admission
Bathing Restrictions OK to Shower
Other Services Cardiac Rehab
Instructions:
Stand-Alone Forms: DC Instructions- Cath/EP Lab
Changes to Home Medications: Yes
Discharge Medications:
DC Medications w/original date entered in [facility]
cyclobenzaprine 5 mg tablet 5 mg PO BID PRN spasam 07/26/23
glipizide 10 mg tablet, extended release 24 hr (Glucotrol XL) 10 mg PO DAILY Diabetes 07/26/23
latanoprost 0.005 % eye drops (Xalatan) 1 drp ophthalmic (eye) DAILY Eye Condition 07/26/23
meclizine 25 mg tablet 25 mg PO TID PRN dizziness 07/26/23
tamsulosin 0.4 mg capsule (Flomax) 0.4 mg PO HS Urinary Issue 07/26/23
blood sugar diagnostic (Contour Next Test Strips) #100 ea 07/28/23
dapagliflozin propanediol 10 mg tablet (Farxiga) 10 mg PO DAILY #30 tabs 07/28/23
lancets 21 gauge (Color Lancets) #100 ea 07/28/23
acetaminophen 325 mg tablet 650 mg PO Q4HPRN PRN mild pain #0 tabs 07/29/23
aspirin 81 mg chewable tablet (Children's Aspirin) 81 mg PO DAILY #30 tabs 07/29/23
atorvastatin 80 mg tablet 80 mg PO QPM #30 tabs 07/29/23
lisinopril 5 mg tablet 5 mg PO DAILY #30 tabs 07/29/23
metoprolol succinate 50 mg tablet,extended release 24 hr 50 mg PO DAILY #30 tabs 07/29/23
nitroglycerin 0.4 mg sublingual tablet (Nitrostat) 0.4 mg sublingual Q5M PRN chest pain #25 tabs 07/29/23
ticagrelor 90 mg tablet (Brilinta) 90 mg PO BID #60 tabs 07/29/23
Home Medication Changes
ASA, brilinta, nitro, metoprolol, dapaglifozin all new. Lisinopril dose changed.
Pending Results: No
[2023-07-29 12:11] LABS: Glucose - Point of Care 129 mg/dl (70-99)
--- NOTE | 2023-07-29 14:34 | PTCARENOTE ---
discharge instructions given to patient and patients daughter. Encouraged questions. INT d/c'd.
== END 2023-07-29 14:53 | disposition home health service (06) | DRG 322 ==
LOC: IVU 15:40
PROVIDERS: Internal Medicine Cardiovascular Disease; Nurse Practitioner; Nurse Practitioner Adult Health; ADMITTING PHYSICIAN Internal Medicine Cardiovascular Disease; OTHER PHYSICIAN Thoracic Surgery (Cardiothoracic Vascular Surgery)
PROC: B2111ZZ Fluoroscopy of Multiple Coronary Arteries using Low Osmolar Contrast (ICD-10-PCS; 2023-07-26)
PROC: 4A023N7 Measurement of Cardiac Sampling and Pressure, Left Heart, Percutaneous Approach (ICD-10-PCS; 2023-07-26)
PROC: B240ZZ3 Ultrasonography of Single Coronary Artery, Intravascular (ICD-10-PCS; 2023-07-28)
PROC: 027135Z Dilation of Coronary Artery, Two Arteries with Two Drug-eluting Intraluminal Devices, Percutaneous Approach (ICD-10-PCS; 2023-07-28)
DX: I21.4 Non-ST elevation (NSTEMI) myocardial infarction (principal); I10 Essential (primary) hypertension; E78.00 Pure hypercholesterolemia, unspecified; E11.9 Type 2 diabetes mellitus without complications; N40.0 Benign prostatic hyperplasia without lower urinary tract symptoms; I25.119 Atherosclerotic heart disease of native coronary artery with unspecified angina pectoris; I45.10 Unspecified right bundle-branch block; B19.20 Unspecified viral hepatitis C without hepatic coma; K21.9 Gastro-esophageal reflux disease without esophagitis; Z60.3 Acculturation difficulty; Z82.49 Family history of ischemic heart disease and other diseases of the circulatory system; Z87.442 Personal history of urinary calculi; Z87.891 Personal history of nicotine dependence; Z79.84 Long term (current) use of oral hypoglycemic drugs
CPT/HCPCS: 76937; 80048; 80053; 80061; 82248; 82550; 82553; 82962; 83036; 84484; 85027; 85347; 85730; 86850; 86900; 86901; 87070; 92978; 93005; 93306; 93458; 94060; 94640; C1725; C1753; C1760; C1769; C1874; C1887; C1894; C9600; Q9967